=== PATIENT | male | born 1955 | race Caucasian/White ===

== ENCOUNTER 2018-04-03 07:08 | Outpatient (CLI) | payer MEDICARE, BC ==
[~2018-04-03] VITALS: Ht 175.3 cm; Wt 127.0 kg
[~2018-04-03 07:08] MED LIST: ALL300T PO; AMLO10TA3 PO; ASPI-1071 PO; CHOL100062 PO; CHOL4PAC2 PO; FENO160T PO; METF500T4 PO; MULT-1085 PO; PIOG45TA PO; VALS1TAB81 PO
[2018-04-03] MEDS ORDERED: albuterol 2.5 MG/3 ML nebule NEB PRN (08:05)
== END 2018-04-03 23:59 | disposition home or self-care (01) ==
LOC: RT 07:08
PROVIDERS: ATTEND Family Medicine
DX: R94.2 Abnormal results of pulmonary function studies (principal); E11.9 Type 2 diabetes mellitus without complications; I10 Essential (primary) hypertension; Z87.891 Personal history of nicotine dependence; Z72.89 Other problems related to lifestyle
CPT/HCPCS: 94060; 94640; 94727; 94729; 94760

== ENCOUNTER 2018-09-28 17:35 | Emergency (ER) | payer MEDICARE, BC ==
[~2018-09-28] VITALS: Ht 175.3 cm; Wt 113.6 kg
[~2018-09-28 17:35] MED LIST changes: +AMLO-54 PO; -AMLO10TA3 PO; +METF-950 PO; -METF500T4 PO
[2018-09-28] MEDS ORDERED: ciprofloxacin lact 400MG/200ML 200 ML IV STA (19:01)
[2018-09-28] MEDS ORDERED: gentamicin 40 MG/1 ML inj IV ONE (19:05)
[2018-09-28] MEDS ORDERED: NORMAL SALINE IV ONE (19:30)
[2018-09-28] MEDS ORDERED: GENTAMICIN IV ONE (19:30)
[2018-09-28] MEDS ORDERED: morphine 2 MG/ML inj. syringe IV ONE (21:05)
[2018-09-28] MEDS ORDERED: HYDR-4383 PO (21:45)
[2018-09-28 22:22] VITALS: BP 135/81
== END 2018-09-28 22:24 | disposition home or self-care (01) ==
LOC: ER 17:36
DX: S63.287A Dislocation of proximal interphalangeal joint of left little finger, initial encounter (principal); I10 Essential (primary) hypertension; E11.9 Type 2 diabetes mellitus without complications; Z95.5 Presence of coronary angioplasty implant and graft; Z98.890 Other specified postprocedural states; Z88.0 Allergy status to penicillin; Z79.899 Other long term (current) drug therapy; Z79.82 Long term (current) use of aspirin; W19.XXXA Unspecified fall, initial encounter; Y93.89 Activity, other specified; Y92.89 Other specified places as the place of occurrence of the external cause; Y99.8 Other external cause status
CPT/HCPCS: 26770; 73140; 96365; 96368; 96375; 99284; J0744; J1580; J2270; 29130; J7030

== ENCOUNTER 2018-10-18 14:59 | Emergency (ER) | payer MEDICARE, BC ==
[~2018-10-18] VITALS: Ht 175.3 cm; Wt 111.4 kg
[~2018-10-18 14:59] MED LIST changes: +HYDR-4383 PO
[2018-10-18 17:51] VITALS: BP 144/62
== END 2018-10-18 17:52 | disposition home or self-care (01) ==
LOC: ER 14:59
DX: S80.01XA Contusion of right knee, initial encounter (principal); I10 Essential (primary) hypertension; E11.9 Type 2 diabetes mellitus without complications; Z98.61 Coronary angioplasty status; Z98.890 Other specified postprocedural states; Z88.0 Allergy status to penicillin; Z79.82 Long term (current) use of aspirin; Z79.899 Other long term (current) drug therapy; X58.XXXA Exposure to other specified factors, initial encounter; Y93.89 Activity, other specified; Y92.89 Other specified places as the place of occurrence of the external cause; Y99.8 Other external cause status
CPT/HCPCS: 93971; 99283; 99284

== ENCOUNTER 2023-03-26 10:00 | Outpatient (CLI) | payer MEDICARE ==
[~2023-03-26 10:00] MED LIST changes: +AMLO-317 PO; -AMLO-54 PO; -CHOL4PAC2 PO; +CHOL4POW4 PO; +METF-1203 PO; -METF-950 PO
== END 2023-03-26 23:59 | disposition home or self-care (01) ==
LOC: VAS 10:00
PROVIDERS: ATTEND Family Medicine
DX: M79.89 Other specified soft tissue disorders (principal)
CPT/HCPCS: 93971

== ENCOUNTER 2024-12-30 07:14 | Inpatient (IN) | payer MEDICARE, OTHER ==
[~2024-12-30] VITALS: Ht 172.7 cm; Wt 112.2 kg
[2024-12-30] VITALS (24 sets, daily range): BP systolic 82–183; BP diastolic 41–91; PULSE 55–112; RESP 15–23; O2SAT 92–98
[2024-12-30] MEDS: normal saline 1000ML IV soln IVB ONE (07:31)
[2024-12-30 07:33] LABS: BASOPHILS # (AUTO) 0.1 X10'3 (0-0.2); BASOPHILS % (AUTO) 0.8 % (0-1); EOSINOPHILS # (AUTO) 0.3 X10'3 (0-0.9); EOSINOPHILS % (AUTO) 2.2 % (0-6); HEMATOCRIT 40.1 % (42.0-52.0); HEMOGLOBIN 13.2 g/dl (14.0-17.9); LYMPHOCYTES # (AUTO) 2.4 X10'3 (1.1-4.8); LYMPHOCYTES % (AUTO) 20.8 % (21-51); MEAN CORPUSCULAR HEMOGLOBIN 32.2 PG (27.0-31.0); MEAN CORPUSCULAR VOLUME 97.4 FL (78-98); MEAN PLATELET VOLUME 8.2 FL (7.4-10.4); MONOCYTES # (AUTO) 0.9 X10'3 (0-0.9); MONOCYTES % (AUTO) 7.3 % (2-12); NEUTROPHILS % (AUTO) 68.9 % (42-75); PLATELET COUNT 428 X10'3 (140-440); RED BLOOD COUNT 4.12 X10'6 (4.70-6.10); WHITE BLOOD COUNT 11.6 X10'3 (4.5-11.0)
[2024-12-30] MEDS: methylPREDNISolone sod succ 125mg/2ml vial IV ONE (07:33)
[2024-12-30] MEDS: magnesium sulf-water 2g/50mL 50 ML IV ONE (07:38)
[2024-12-30 07:46] LABS: ABG BASE EXCESS -9.2 mmol/L (-2.0-3.0); ABG HCO3 19.1 mmol/L (21.0-28.0); ABG OXYGEN SATURATION 97.3 % (94.0-98.0); ABG PCO2 (T) 50.7 mmHg (35.0-48.0); ABG PH (T) 7.193 (7.350-7.450); ABG PO2 (T) 111.9 mmHg (83.0-108.0); ALLEN'S TEST POSITIVE; FCOHb 0.6 % (0.5-1.5); FHHb 2.7 % (0.0-5.0); FMetHb 0.3 % (0.0-1.5); FO2Hb 96.4 % (94.0-98.0); MODE VENT - APRV; PEEP 5 cm H2O; RESPIRATORY RATE 18 b/min; TIDAL VOLUME 450 mL; TOTAL HEMOGLOBIN 13.5 G/dl (13.5-17.5)
[2024-12-30] MEDS: CefTRIAXone 2gm/D5W 50ml BAG 50 ML IV ONE (07:46)
[2024-12-30] MEDS ORDERED: propofol 1000mg/100ml bottle 100 ML IV PRN (08:00)
[2024-12-30 08:02] LABS: ALBUMIN 3.6 G/DL (3.4-5.0); ANION GAP 10 (8-16); BLOOD UREA NITROGEN 22 MG/DL (7-18); BUN/CREATININE RATIO 14.7 (10.0-20.0); CALCIUM 9.3 MG/DL (8.5-10.1); CHLORIDE 99 MMOL/L (99-107); GLUCOSE 208 MG/DL (70-104); SODIUM 131 MMOL/L (135-145); TOTAL CARBON DIOXIDE 22.1 MMOL/L (24-32); eCRCL 44 ML/MIN; eGFR 46 ML/MIN
[2024-12-30] MEDS: propofol 1000mg/100ml bottle 100 ML IV PRN (08:13)
[2024-12-30] MEDS: nitroGLYCERIN-Tridil 50MG/D5W 250 ML IV PRN (08:17)
[2024-12-30 08:19] LABS: BILIRUBIN,URINE NEGATIVE (Neg); CLARITY,URINE CLEAR (Clear); COLOR,URINE YELLOW (Yellow); GLUCOSE, URINE NEGATIVE (Neg); KETONES,URINE NEGATIVE (Neg); LEUKOCYTE ESTERASE ,URINE NEGATIVE (Neg); NITRITES, URINE NEGATIVE (Neg); OCCULT BLOOD,URINE TRACE-INTACT (Neg); PROTEIN,URINE 100 mg/dl (Neg); UROBILINOGEN,URINE 0.2 E.U/dL (0.2-1.0)
[2024-12-30 08:33] LABS: UA COLLECTION TYPE FOLEY CATH
[2024-12-30 08:38] LABS: BACTERIA,URINE FEW /HPF (Neg); RBC,URINE 0-2 /HPF (0-2); SQUAMOUS EPITHELIAL CELL,UR NONE SEEN /LPF (FEW); WBC,URINE 0-4 /HPF (0-4)
[2024-12-30 08:41] LABS: PRO BRAIN NATRIURETIC PEPTIDE 2222 PG/ML (0-125)
[2024-12-30 08:43] LABS: POTASSIUM 4.8 MMOL/L (3.5-5.1)
[2024-12-30] MEDS: furosemide 10 MG/1 ML 10ml inj IV ONE (08:49)
[2024-12-30] MEDS ORDERED: magnesium hydroxide 30ml (MOM) UD suspension PO PRN (09:55)
[2024-12-30] MEDS ORDERED: acetaminophen 325mg tablet PO PRN ×2 (09:55)
[2024-12-30] MEDS ORDERED: morphine 2 MG/ML inj. syringe IV PRN (09:55)
[2024-12-30] MEDS ORDERED: etomidate 2mg/ml inj. ONE (10:00)
[2024-12-30] MEDS: furosemide 20 MG/2 ML vial IV SCH (10:52)
[2024-12-30] MEDS: morphine 4 MG/ML inj SYRINge IV PRN (11:15)
[2024-12-30] MEDS: FENTANYL-0.9 % NACL/PF 100 ML IV SCH (12:09)
[2024-12-30] MEDS ORDERED: acetaminophen 325mg/10.15ml oral unit dose solution OGT PRN ×2 (13:01)
[2024-12-30] MEDS ORDERED: ipratropium/albuterol 3ml nebule NEB PRN (14:00)
[2024-12-30] MEDS: heparin, porcine 5000 units/ml vial SQ SCH (15:19)
[2024-12-30] MEDS ORDERED: dextrose 50%-water 50ml dispensing syringe IV PRN ×2 (16:15)
[2024-12-30] MEDS ORDERED: DEXTROSE 15 GM of carb/4 tabs (each vial/BOTTLE has 4 tablets) PO PRN ×2 (16:15)
[2024-12-30] MEDS ORDERED: glucagon, human recombinant 1mg kit SUBCUT PRN (16:15)
[2024-12-30 16:30] LABS: OXYGEN SATURATION (MIXED VEN) 76.5 % (60-80); PO2 MIXED VENOUS (TEMP COR) 42.8 mmHg (35-46)
[2024-12-30] MEDS: aspirin 325mg tablet, delayed-release (Ecotrin) PO ONE (17:24)
[2024-12-30] MEDS ORDERED: NIFE90TA70 PO (17:57)
[2024-12-30] MEDS: NORepinephrine 8mg/ 250ml NS 250 ML IV SCH (18:30)
[2024-12-30] MEDS: ipratropium/albuterol 3ml nebule NEB SCH (18:53)
[2024-12-31] VITALS (46 sets, daily range): BP systolic 83–136; BP diastolic 35–65; PULSE 54–66; RESP 0–19; O2SAT 92–98
[2024-12-31 00:34] LABS: BASOPHILS % (AUTO) 0.1 % (0-1); EOSINOPHILS % (AUTO) 0 % (0-6); HEMATOCRIT 28.8 % (42.0-52.0); HEMOGLOBIN 9.7 g/dl (14.0-17.9); LYMPHOCYTES # (AUTO) 0.5 X10'3 (1.1-4.8); LYMPHOCYTES % (AUTO) 5.7 % (21-51); MEAN CORPUSCULAR HEMOGLOBIN 32.3 PG (27.0-31.0); MEAN CORPUSCULAR HGB CONC 33.6 g/dL (33.0-36.5); MEAN CORPUSCULAR VOLUME 96.2 FL (78-98); MEAN PLATELET VOLUME 8.2 FL (7.4-10.4); MONOCYTES # (AUTO) 0.6 X10'3 (0-0.9); MONOCYTES % (AUTO) 7.2 % (2-12); NEUTROPHILS # (AUTO) 7.3 X10'3 (1.8-7.7); PLATELET COUNT 232 X10'3 (140-440); RED BLOOD COUNT 2.99 X10'6 (4.70-6.10); RED CELL DISTRIBUTION WIDTH 15.5 % (11.5-14.5); WHITE BLOOD COUNT 8.4 X10'3 (4.5-11.0)
[2024-12-31 00:53] LABS: ALANINE AMINOTRANSFERASE 17 U/L (12-78); ALBUMIN 2.6 G/DL (3.4-5.0); ALBUMIN/GLOBULIN RATIO 0.8 (1.1-1.5); ALKALINE PHOSPHATASE 36 IU/L (46-116); ANION GAP 8 (8-16); ASPARTATE AMINO TRANSFERASE 45 U/L (10-37); BILIRUBIN,TOTAL 0.4 MG/DL (0.1-1.0); BLOOD UREA NITROGEN 31 MG/DL (7-18); BUN/CREATININE RATIO 16.1 (10.0-20.0); CALCIUM 8.5 MG/DL (8.5-10.1); CHLORIDE 101 MMOL/L (99-107); CREATININE 1.93 MG/DL (0.60-1.10); GLUCOSE 111 MG/DL (70-104); MAGNESIUM 1.9 MG/DL (1.5-2.4); PHOSPHORUS 6.7 MG/DL (2.3-4.5); POTASSIUM 4.7 MMOL/L (3.5-5.1); SODIUM 132 MMOL/L (135-145); TOTAL CARBON DIOXIDE 22.8 MMOL/L (24-32); TOTAL PROTEIN 5.7 G/DL (6.4-8.2); eCRCL 34 ML/MIN; eGFR 34 ML/MIN
[2024-12-31 04:02] LABS: ABG BASE EXCESS -7.8 mmol/L (-2.0-3.0); ABG HCO3 18.3 mmol/L (21.0-28.0); ABG OXYGEN SATURATION 97.1 % (94.0-98.0); ABG PH (T) 7.287 (7.350-7.450); ABG PO2 (T) 100.7 mmHg (83.0-108.0); ALLEN'S TEST POSITIVE; FCOHb 0.1 % (0.5-1.5); FHHb 2.9 % (0.0-5.0); FMetHb 0.3 % (0.0-1.5); FO2Hb 96.7 % (94.0-98.0); MODE VENT - PRVC; PATIENT TEMPERATURE 36.7; PEEP 5 cm H2O; RESPIRATORY RATE 18 b/min; TIDAL VOLUME 500 mL; TOTAL HEMOGLOBIN 10.4 G/dl (13.5-17.5)
[2024-12-31] MEDS: vancomycin/NS 1 GM ADD-VANTAGE 250 ML IV SCH (04:48)
[2024-12-31] MEDS: vancomycin/NS 1 GM ADD-VANTAGE 250 ML IV ONE (04:48)
[2024-12-31] MEDS: pantoprazole 40 MG vial IV SCH (07:51)
[2024-12-31] MEDS: furosemide 10 MG/1 ML 10ml inj IV SCH (07:51)
[2024-12-31] MEDS ORDERED: piperacillin/tazo 3.375gm/50ml 50 ML IV SCH (08:00)
[2024-12-31] MEDS: bumetanide inj. 10 MG in normal saline 100ml IV soln 60 ML IV SCH (15:23)
[2024-12-31] MEDS: HEPARIN DRIP INITAL BOLUS --- DO NOT GIVE/ORDER MC ONE (17:30)
[2024-12-31] MEDS: heparin 25,000 UNIT/250ml bag 250 ML IV PRN (18:36)
[2024-12-31] MEDS: MESSAGE TO NURSING IV ONE (18:38)
[2024-12-31] MEDS: HEPARIN DRIP-CARDIAC**PHARMACIST-TO-DOSE IV ONE (18:38)
[2024-12-31] MEDS: aspirin 81mg, enteric-coated 1 TAB TABLET.DR PO SCH (18:38)
[2024-12-31] MEDS: atorvastatin 20mg tablet PO SCH (20:06)
[2024-12-31 23:39] LABS: BASOPHILS % (AUTO) 0.4 % (0-1); EOSINOPHILS # (AUTO) 0.1 X10'3 (0-0.9); EOSINOPHILS % (AUTO) 1.3 % (0-6); HEMATOCRIT 28.1 % (42.0-52.0); HEMOGLOBIN 9.4 g/dl (14.0-17.9); LYMPHOCYTES # (AUTO) 0.8 X10'3 (1.1-4.8); LYMPHOCYTES % (AUTO) 13.7 % (21-51); MEAN CORPUSCULAR HGB CONC 33.4 g/dL (33.0-36.5); MEAN CORPUSCULAR VOLUME 95.9 FL (78-98); MONOCYTES # (AUTO) 0.6 X10'3 (0-0.9); MONOCYTES % (AUTO) 10.9 % (2-12); NEUTROPHILS # (AUTO) 4.2 X10'3 (1.8-7.7); NEUTROPHILS % (AUTO) 73.7 % (42-75); PLATELET COUNT 239 X10'3 (140-440); RED BLOOD COUNT 2.93 X10'6 (4.70-6.10); RED CELL DISTRIBUTION WIDTH 15.6 % (11.5-14.5); WHITE BLOOD COUNT 5.7 X10'3 (4.5-11.0)
[2024-12-31 23:51] LABS: INR 1.1 INR; PROTHROMBIN TIME 11.4 SECONDS (9.0-12.0)
[2024-12-31 23:54] LABS: ALANINE AMINOTRANSFERASE 26 U/L (12-78); ALBUMIN 2.6 G/DL (3.4-5.0); ALBUMIN/GLOBULIN RATIO 0.9 (1.1-1.5); ALKALINE PHOSPHATASE 32 IU/L (46-116); ANION GAP 7 (8-16); ASPARTATE AMINO TRANSFERASE 29 U/L (10-37); BILIRUBIN,TOTAL 0.3 MG/DL (0.1-1.0); BLOOD UREA NITROGEN 49 MG/DL (7-18); BUN/CREATININE RATIO 21.5 (10.0-20.0); CALCIUM 8.3 MG/DL (8.5-10.1); CHLORIDE 101 MMOL/L (99-107); CREATININE 2.28 MG/DL (0.60-1.10); GLUCOSE 120 MG/DL (70-104); SODIUM 136 MMOL/L (135-145); TOTAL CARBON DIOXIDE 27.7 MMOL/L (24-32); TOTAL PROTEIN 5.6 G/DL (6.4-8.2); eCRCL 29 ML/MIN; eGFR 28 ML/MIN
[2024-12-31 23:58] LABS: CHOL/HDL RATIO 3.9 (0.00-4.99); CHOLESTEROL 118 MG/DL (0-200); HDL CHOLESTEROL 30 MG/DL (35-60); LDL CHOLESTEROL 62 MG/DL (50-100); MAGNESIUM 2.1 MG/DL (1.5-2.4); PHOSPHORUS 6.1 MG/DL (2.3-4.5); TRIGLYCERIDES 178 MG/DL (20-135)
[2025-01-01] VITALS (45 sets, daily range): BP systolic 101–139; BP diastolic 39–58; PULSE 56–76; RESP 14–28; O2SAT 94–99
[2025-01-01] MEDS: heparin 10,000 units/1 ML INJ IV PRN (01:00)
[2025-01-01] MEDS: MESSAGE TO NURSING IV ONE ×3 (01:01→17:25)
[2025-01-01 04:28] LABS: ABG BASE EXCESS -0.8 mmol/L (-2.0-3.0); ABG HCO3 24.4 mmol/L (21.0-28.0); ABG OXYGEN SATURATION 95.3 % (94.0-98.0); ABG PCO2 (T) 43.1 mmHg (35.0-48.0); ABG PH (T) 7.371 (7.350-7.450); ABG PO2 (T) 80.4 mmHg (83.0-108.0); ALLEN'S TEST Modified; FCOHb 0.5 % (0.5-1.5); FHHb 4.7 % (0.0-5.0); FMetHb 0.3 % (0.0-1.5); FO2Hb 94.5 % (94.0-98.0); MODE PRVC; PATIENT TEMPERATURE 37.4; PEEP 5 cm H2O; RESPIRATORY RATE 18 b/min; TIDAL VOLUME 500 mL; TOTAL HEMOGLOBIN 10.4 G/dl (13.5-17.5)
[2025-01-01 05:56] LABS: BASOPHILS % (AUTO) 0.7 % (0-1); EOSINOPHILS # (AUTO) 0.1 X10'3 (0-0.9); EOSINOPHILS % (AUTO) 1.3 % (0-6); HEMATOCRIT 28.7 % (42.0-52.0); HEMOGLOBIN 9.7 g/dl (14.0-17.9); LYMPHOCYTES # (AUTO) 0.8 X10'3 (1.1-4.8); MEAN CORPUSCULAR HEMOGLOBIN 32.2 PG (27.0-31.0); MEAN CORPUSCULAR HGB CONC 33.8 g/dL (33.0-36.5); MEAN CORPUSCULAR VOLUME 95.4 FL (78-98); MEAN PLATELET VOLUME 8.5 FL (7.4-10.4); MONOCYTES # (AUTO) 0.7 X10'3 (0-0.9); MONOCYTES % (AUTO) 12.5 % (2-12); NEUTROPHILS # (AUTO) 3.8 X10'3 (1.8-7.7); NEUTROPHILS % (AUTO) 70.5 % (42-75); PLATELET COUNT 233 X10'3 (140-440); RED BLOOD COUNT 3.01 X10'6 (4.70-6.10); RED CELL DISTRIBUTION WIDTH 15.4 % (11.5-14.5); WHITE BLOOD COUNT 5.4 X10'3 (4.5-11.0)
[2025-01-01 06:28] LABS: ALANINE AMINOTRANSFERASE 21 U/L (12-78); ALBUMIN 2.6 G/DL (3.4-5.0); ALBUMIN/GLOBULIN RATIO 0.8 (1.1-1.5); ALKALINE PHOSPHATASE 33 IU/L (46-116); ANION GAP 9 (8-16); ASPARTATE AMINO TRANSFERASE 35 U/L (10-37); BILIRUBIN,TOTAL 0.3 MG/DL (0.1-1.0); BLOOD UREA NITROGEN 48 MG/DL (7-18); BUN/CREATININE RATIO 19.4 (10.0-20.0); CALCIUM 8.5 MG/DL (8.5-10.1); CHLORIDE 100 MMOL/L (99-107); CREATININE 2.47 MG/DL (0.60-1.10); GLUCOSE 111 MG/DL (70-104); POTASSIUM 3.9 MMOL/L (3.5-5.1); SODIUM 134 MMOL/L (135-145); TOTAL CARBON DIOXIDE 24.9 MMOL/L (24-32); TOTAL PROTEIN 5.7 G/DL (6.4-8.2); eCRCL 27 ML/MIN; eGFR 26 ML/MIN
[2025-01-01 06:31] LABS: PHOSPHORUS 6.1 MG/DL (2.3-4.5); PREALBUMIN 28.1 MG/DL (19-36)
[2025-01-01 10:26] LABS: ALBUMIN 2.6 G/DL (3.4-5.0); ANION GAP 9 (8-16); BLOOD UREA NITROGEN 50 MG/DL (7-18); BUN/CREATININE RATIO 20.2 (10.0-20.0); CALCIUM 8.5 MG/DL (8.5-10.1); CHLORIDE 100 MMOL/L (99-107); CREATININE 2.47 MG/DL (0.60-1.10); GLUCOSE 107 MG/DL (70-104); POTASSIUM 3.9 MMOL/L (3.5-5.1); SODIUM 134 MMOL/L (135-145); TOTAL CARBON DIOXIDE 25.4 MMOL/L (24-32); eCRCL 27 ML/MIN; eGFR 26 ML/MIN
[2025-01-01 16:40] LABS: ALBUMIN 2.7 G/DL (3.4-5.0); ANION GAP 10 (8-16); BLOOD UREA NITROGEN 57 MG/DL (7-18); BUN/CREATININE RATIO 22.7 (10.0-20.0); CALCIUM 8.6 MG/DL (8.5-10.1); CHLORIDE 100 MMOL/L (99-107); CREATININE 2.51 MG/DL (0.60-1.10); GLUCOSE 98 MG/DL (70-104); MAGNESIUM 2.2 MG/DL (1.5-2.4); POTASSIUM 4.1 MMOL/L (3.5-5.1); SODIUM 138 MMOL/L (135-145); TOTAL CARBON DIOXIDE 28.3 MMOL/L (24-32); eCRCL 26 ML/MIN; eGFR 25 ML/MIN
[2025-01-01 23:59] LABS: ALBUMIN 2.6 G/DL (3.4-5.0); ANION GAP 10 (8-16); BLOOD UREA NITROGEN 60 MG/DL (7-18); BUN/CREATININE RATIO 23.3 (10.0-20.0); CALCIUM 8.5 MG/DL (8.5-10.1); CHLORIDE 101 MMOL/L (99-107); CREATININE 2.58 MG/DL (0.60-1.10); GLUCOSE 119 MG/DL (70-104); MAGNESIUM 2.1 MG/DL (1.5-2.4); POTASSIUM 4.1 MMOL/L (3.5-5.1); SODIUM 138 MMOL/L (135-145); TOTAL CARBON DIOXIDE 27.5 MMOL/L (24-32); eCRCL 25 ML/MIN; eGFR 25 ML/MIN
[2025-01-02] VITALS (39 sets, daily range): BP systolic 105–177; BP diastolic 44–75; PULSE 57–115; RESP 11–23; O2SAT 91–98
[2025-01-02] MEDS: MESSAGE TO NURSING IV ONE ×3 (01:21→15:10)
[2025-01-02 03:37] LABS: ABG BASE EXCESS -0.8 mmol/L (-2.0-3.0); ABG HCO3 23.9 mmol/L (21.0-28.0); ABG OXYGEN SATURATION 97.7 % (94.0-98.0); ABG PCO2 (T) 41.3 mmHg (35.0-48.0); ABG PH (T) 7.384 (7.350-7.450); ABG PO2 (T) 105.9 mmHg (83.0-108.0); ALLEN'S TEST Modified; FCOHb 0.4 % (0.5-1.5); FHHb 2.3 % (0.0-5.0); FMetHb 0.3 % (0.0-1.5); MODE prvc; PATIENT TEMPERATURE 37.8; PEEP 5 cm H2O; RESPIRATORY RATE 18 b/min; TIDAL VOLUME 500 mL; TOTAL HEMOGLOBIN 10.7 G/dl (13.5-17.5)
[2025-01-02 06:02] LABS: ALANINE AMINOTRANSFERASE 22 U/L (12-78); ALBUMIN 2.5 G/DL (3.4-5.0); ALBUMIN/GLOBULIN RATIO 0.7 (1.1-1.5); ALKALINE PHOSPHATASE 35 IU/L (46-116); ANION GAP 8 (8-16); ASPARTATE AMINO TRANSFERASE 32 U/L (10-37); BILIRUBIN,TOTAL 0.4 MG/DL (0.1-1.0); BLOOD UREA NITROGEN 62 MG/DL (7-18); BUN/CREATININE RATIO 23.4 (10.0-20.0); CALCIUM 8.7 MG/DL (8.5-10.1); CHLORIDE 99 MMOL/L (99-107); CREATININE 2.65 MG/DL (0.60-1.10); GLUCOSE 121 MG/DL (70-104); PHOSPHORUS 6.1 MG/DL (2.3-4.5); POTASSIUM 3.7 MMOL/L (3.5-5.1); SODIUM 134 MMOL/L (135-145); TOTAL CARBON DIOXIDE 26.9 MMOL/L (24-32); TOTAL PROTEIN 6.1 G/DL (6.4-8.2); eCRCL 25 ML/MIN; eGFR 24 ML/MIN
[2025-01-02 06:03] LABS: BASOPHILS % (AUTO) 0.5 % (0-1); EOSINOPHILS # (AUTO) 0.1 X10'3 (0-0.9); EOSINOPHILS % (AUTO) 1.2 % (0-6); HEMATOCRIT 29.8 % (42.0-52.0); HEMOGLOBIN 10.3 g/dl (14.0-17.9); LYMPHOCYTES # (AUTO) 0.7 X10'3 (1.1-4.8); MEAN CORPUSCULAR HEMOGLOBIN 32.9 PG (27.0-31.0); MEAN CORPUSCULAR HGB CONC 34.4 g/dL (33.0-36.5); MEAN CORPUSCULAR VOLUME 95.5 FL (78-98); MEAN PLATELET VOLUME 8.8 FL (7.4-10.4); MONOCYTES % (AUTO) 15.5 % (2-12); NEUTROPHILS # (AUTO) 4.4 X10'3 (1.8-7.7); NEUTROPHILS % (AUTO) 70.8 % (42-75); PLATELET COUNT 258 X10'3 (140-440); RED BLOOD COUNT 3.12 X10'6 (4.70-6.10); RED CELL DISTRIBUTION WIDTH 15.6 % (11.5-14.5); WHITE BLOOD COUNT 6.2 X10'3 (4.5-11.0)
[2025-01-02] MEDS ORDERED: bisacodyl 10mg suppository rectal RC PRN (07:45)
[2025-01-02] MEDS: docusate sodium 100mg/10ml UD cup PO SCH (08:00)
[2025-01-02] MEDS ORDERED: DEXTROSE 15 GM of carb/4 tabs (each vial/BOTTLE has 4 tablets) OGT PRN ×2 (11:31)
[2025-01-02] MEDS ORDERED: carvedilol 6.25mg tablet PO SCH (13:20)
[2025-01-02] MEDS: carvedilol 6.25mg tablet PO ONE (13:53)
[2025-01-02 14:18] LABS: APTT 40 SECONDS (22-32)
[2025-01-02] MEDS: furosemide 10 MG/1 ML 10ml inj IV SCH (16:51)
[2025-01-02] MEDS: chloestyramine/aspartame 4gm packet PO SCH (19:36)
[2025-01-02] MEDS: ondansetron/PF 4mg/2ml inj IV PRN (19:36)
[2025-01-02] MEDS: docusate sodium 100mg/10ml UD cup OGT SCH (19:36)
[2025-01-02] MEDS: carvedilol 6.25mg tablet PO SCH (19:36)
[2025-01-02] MEDS: fenofibrate 145mg tablet PO SCH (19:36)
[2025-01-02] MEDS: allopurinol 300 MG tablet PO SCH (19:36)
[2025-01-02] MEDS ORDERED: HYDROcodone/acetaminophen 5mg/325mg tablet PO SCH (20:00)
[2025-01-03] VITALS (24 sets, daily range): BP systolic 95–153; BP diastolic 44–64; PULSE 62–81; RESP 12–22; TEMP 97.6–97.9; O2SAT 92–97
[2025-01-03 02:09] LABS: BASOPHILS % (AUTO) 0.5 % (0-1); EOSINOPHILS # (AUTO) 0.1 X10'3 (0-0.9); EOSINOPHILS % (AUTO) 1.7 % (0-6); HEMOGLOBIN 10.5 g/dl (14.0-17.9); LYMPHOCYTES # (AUTO) 0.7 X10'3 (1.1-4.8); LYMPHOCYTES % (AUTO) 9.6 % (21-51); MEAN CORPUSCULAR HEMOGLOBIN 32.2 PG (27.0-31.0); MEAN CORPUSCULAR HGB CONC 33.9 g/dL (33.0-36.5); MEAN PLATELET VOLUME 8.3 FL (7.4-10.4); MONOCYTES # (AUTO) 1.2 X10'3 (0-0.9); MONOCYTES % (AUTO) 16.1 % (2-12); NEUTROPHILS # (AUTO) 5.4 X10'3 (1.8-7.7); NEUTROPHILS % (AUTO) 72.1 % (42-75); PLATELET COUNT 277 X10'3 (140-440); RED BLOOD COUNT 3.26 X10'6 (4.70-6.10); RED CELL DISTRIBUTION WIDTH 15.1 % (11.5-14.5); WHITE BLOOD COUNT 7.5 X10'3 (4.5-11.0)
[2025-01-03 02:23] LABS: ALANINE AMINOTRANSFERASE 25 U/L (12-78); ALBUMIN 2.8 G/DL (3.4-5.0); ALBUMIN/GLOBULIN RATIO 0.7 (1.1-1.5); ALKALINE PHOSPHATASE 41 IU/L (46-116); ANION GAP 8 (8-16); ASPARTATE AMINO TRANSFERASE 26 U/L (10-37); BILIRUBIN,TOTAL 0.8 MG/DL (0.1-1.0); BLOOD UREA NITROGEN 68 MG/DL (7-18); BUN/CREATININE RATIO 29.1 (10.0-20.0); CALCIUM 9.4 MG/DL (8.5-10.1); CHLORIDE 99 MMOL/L (99-107); CREATININE 2.34 MG/DL (0.60-1.10); GLUCOSE 111 MG/DL (70-104); PHOSPHORUS 6.2 MG/DL (2.3-4.5); POTASSIUM 3.8 MMOL/L (3.5-5.1); SODIUM 140 MMOL/L (135-145); TOTAL CARBON DIOXIDE 33.5 MMOL/L (24-32); TOTAL PROTEIN 6.6 G/DL (6.4-8.2); eCRCL 28 ML/MIN; eGFR 28 ML/MIN
[2025-01-03] MEDS: furosemide 10 MG/1 ML 10ml inj IV SCH (08:00)
[2025-01-03] MEDS: aspirin 81mg tab.chew OGT SCH (08:42)
[2025-01-03] MEDS: docusate sod 100mg capsule PO SCH (08:43)
[2025-01-03] MEDS: atorvastatin 20mg tablet OGT SCH (08:44)
[2025-01-03] MEDS: losartan 50mg tablet PO SCH (08:44)
[2025-01-03] MEDS: HYDROchlorothiazide 25mg tablet PO SCH (08:45)
[2025-01-03] MEDS: heparin, porcine 5000 units/ml vial SQ SCH (08:46)
[2025-01-03] MEDS: multivitamins, therapeutics tablet PO SCH (08:53)
[2025-01-03] MEDS: NIFEdipine XL 30mg tablet PO SCH (09:30)
[2025-01-03] MEDS: acetaminophen 325mg tablet PO PRN (13:02)
[2025-01-03 14:33] LABS: D-DIMER 9.92 MG/L FEU (0-0.50)
[2025-01-03 14:38] LABS: CREATINE KINASE 77 U/L (39-308); LIPASE 62 U/L (16-77); THYROID STIMULATING HORMONE 0.99 ulU/ml (0.34-4.50)
[2025-01-03] MEDS: allopurinol 100mg tablet PO SCH (20:18)
[2025-01-04] VITALS (18 sets, daily range): BP systolic 125–168; BP diastolic 52–69; PULSE 67–77; RESP 14–22; TEMP 97.5–98.7; O2SAT 81–96
[2025-01-04 07:08] LABS: BASOPHILS % (AUTO) 0.7 % (0-1); EOSINOPHILS # (AUTO) 0.2 X10'3 (0-0.9); EOSINOPHILS % (AUTO) 3.9 % (0-6); HEMATOCRIT 31.9 % (42.0-52.0); HEMOGLOBIN 10.7 g/dl (14.0-17.9); LYMPHOCYTES # (AUTO) 0.7 X10'3 (1.1-4.8); MEAN CORPUSCULAR HEMOGLOBIN 32.1 PG (27.0-31.0); MEAN CORPUSCULAR HGB CONC 33.6 g/dL (33.0-36.5); MEAN CORPUSCULAR VOLUME 95.6 FL (78-98); MEAN PLATELET VOLUME 8.8 FL (7.4-10.4); MONOCYTES % (AUTO) 17.2 % (2-12); NEUTROPHILS # (AUTO) 3.7 X10'3 (1.8-7.7); NEUTROPHILS % (AUTO) 65.2 % (42-75); PLATELET COUNT 309 X10'3 (140-440); RED BLOOD COUNT 3.34 X10'6 (4.70-6.10); RED CELL DISTRIBUTION WIDTH 14.9 % (11.5-14.5); WHITE BLOOD COUNT 5.7 X10'3 (4.5-11.0)
[2025-01-04 07:29] LABS: ALANINE AMINOTRANSFERASE 21 U/L (12-78); ALBUMIN 2.8 G/DL (3.4-5.0); ALBUMIN/GLOBULIN RATIO 0.7 (1.1-1.5); ALKALINE PHOSPHATASE 40 IU/L (46-116); ANION GAP 10 (8-16); ASPARTATE AMINO TRANSFERASE 30 U/L (10-37); BILIRUBIN,TOTAL 0.6 MG/DL (0.1-1.0); BLOOD UREA NITROGEN 90 MG/DL (7-18); BUN/CREATININE RATIO 30.1 (10.0-20.0); CALCIUM 9.9 MG/DL (8.5-10.1); CHLORIDE 97 MMOL/L (99-107); CREATININE 2.99 MG/DL (0.60-1.10); GLUCOSE 125 MG/DL (70-104); MAGNESIUM 2.2 MG/DL (1.5-2.4); PHOSPHORUS 5.8 MG/DL (2.3-4.5); POTASSIUM 3.7 MMOL/L (3.5-5.1); SODIUM 137 MMOL/L (135-145); TOTAL CARBON DIOXIDE 29.9 MMOL/L (24-32); TOTAL PROTEIN 6.9 G/DL (6.4-8.2); eCRCL 22 ML/MIN; eGFR 21 ML/MIN
[2025-01-04 07:50] LABS: PLATELET ESTIMATE NORMAL; TOTAL CELLS COUNTED 100
[2025-01-04] MEDS: nystatin 15 GM powder TP SCH (09:49)
[2025-01-04] MEDS: pantoprazole 40mg Tablet.DR PO SCH (09:52)
[2025-01-05] VITALS (19 sets, daily range): BP systolic 158–195; BP diastolic 61–87; PULSE 64–88; RESP 14–24; TEMP 97.2–98.9; O2SAT 86–99
[2025-01-05] MEDS: losartan 50mg tablet PO ONE (03:20)
[2025-01-05 07:46] LABS: BASOPHILS # (AUTO) 0.1 X10'3 (0-0.2); BASOPHILS % (AUTO) 0.9 % (0-1); EOSINOPHILS # (AUTO) 0.2 X10'3 (0-0.9); EOSINOPHILS % (AUTO) 3.5 % (0-6); HEMATOCRIT 32.2 % (42.0-52.0); HEMOGLOBIN 10.9 g/dl (14.0-17.9); LYMPHOCYTES # (AUTO) 0.9 X10'3 (1.1-4.8); LYMPHOCYTES % (AUTO) 13.2 % (21-51); MEAN CORPUSCULAR HEMOGLOBIN 32.2 PG (27.0-31.0); MEAN CORPUSCULAR HGB CONC 33.8 g/dL (33.0-36.5); MEAN CORPUSCULAR VOLUME 95.3 FL (78-98); MEAN PLATELET VOLUME 9.3 FL (7.4-10.4); MONOCYTES # (AUTO) 1.1 X10'3 (0-0.9); MONOCYTES % (AUTO) 17.3 % (2-12); NEUTROPHILS # (AUTO) 4.2 X10'3 (1.8-7.7); NEUTROPHILS % (AUTO) 65.1 % (42-75); PLATELET COUNT 358 X10'3 (140-440); RED BLOOD COUNT 3.39 X10'6 (4.70-6.10); RED CELL DISTRIBUTION WIDTH 14.7 % (11.5-14.5); WHITE BLOOD COUNT 6.5 X10'3 (4.5-11.0)
[2025-01-05 08:39] LABS: ALANINE AMINOTRANSFERASE 26 U/L (12-78); ALBUMIN 2.9 G/DL (3.4-5.0); ALBUMIN/GLOBULIN RATIO 0.7 (1.1-1.5); ALKALINE PHOSPHATASE 41 IU/L (46-116); ANION GAP 9 (8-16); ASPARTATE AMINO TRANSFERASE 36 U/L (10-37); BILIRUBIN,TOTAL 0.5 MG/DL (0.1-1.0); BLOOD UREA NITROGEN 87 MG/DL (7-18); BUN/CREATININE RATIO 37.3 (10.0-20.0); CALCIUM 10.3 MG/DL (8.5-10.1); CHLORIDE 100 MMOL/L (99-107); CREATININE 2.33 MG/DL (0.60-1.10); GLUCOSE 122 MG/DL (70-104); MAGNESIUM 2.2 MG/DL (1.5-2.4); PHOSPHORUS 4.6 MG/DL (2.3-4.5); POTASSIUM 3.5 MMOL/L (3.5-5.1); PREALBUMIN 21.1 MG/DL (19-36); SODIUM 137 MMOL/L (135-145); TOTAL CARBON DIOXIDE 28.5 MMOL/L (24-32); TOTAL PROTEIN 7.1 G/DL (6.4-8.2); TRIGLYCERIDES 192 MG/DL (20-135); eCRCL 28 ML/MIN; eGFR 28 ML/MIN
[2025-01-05] MEDS: normal saline 1000ml 1,000 ML IV ONE (11:37)
[2025-01-05] MEDS: hydrALAZINE 25 MG tablet PO SCH (15:49)
[2025-01-05] MEDS: normal saline 1000ml 1,000 ML IV SCH (16:39)
[2025-01-05 20:51] LABS: UREA NITROGEN 24HR,URINE 20.1 GM/24HR (7-20)
[2025-01-06] VITALS (30 sets, daily range): BP systolic 107–216; BP diastolic 61–92; PULSE 70–105; RESP 14–26; TEMP 96.9–98.6; O2SAT 85–96
[2025-01-06] MEDS: magnesium hydroxide 30ml (MOM) UD suspension OGT PRN (03:43)
[2025-01-06 07:11] LABS: BASOPHILS # (AUTO) 0.1 X10'3 (0-0.2); BASOPHILS % (AUTO) 0.9 % (0-1); EOSINOPHILS # (AUTO) 0.3 X10'3 (0-0.9); EOSINOPHILS % (AUTO) 4.3 % (0-6); HEMATOCRIT 31.5 % (42.0-52.0); HEMOGLOBIN 10.7 g/dl (14.0-17.9); LYMPHOCYTES # (AUTO) 0.7 X10'3 (1.1-4.8); LYMPHOCYTES % (AUTO) 11.7 % (21-51); MEAN CORPUSCULAR HEMOGLOBIN 32.6 PG (27.0-31.0); MEAN CORPUSCULAR VOLUME 95.7 FL (78-98); MEAN PLATELET VOLUME 8.7 FL (7.4-10.4); MONOCYTES # (AUTO) 0.9 X10'3 (0-0.9); MONOCYTES % (AUTO) 14.5 % (2-12); NEUTROPHILS # (AUTO) 4.1 X10'3 (1.8-7.7); NEUTROPHILS % (AUTO) 68.6 % (42-75); PLATELET COUNT 358 X10'3 (140-440); RED BLOOD COUNT 3.29 X10'6 (4.70-6.10); RED CELL DISTRIBUTION WIDTH 14.7 % (11.5-14.5); WHITE BLOOD COUNT 5.9 X10'3 (4.5-11.0)
[2025-01-06 07:28] LABS: ALANINE AMINOTRANSFERASE 25 U/L (12-78); ALBUMIN 2.8 G/DL (3.4-5.0); ALBUMIN/GLOBULIN RATIO 0.7 (1.1-1.5); ALKALINE PHOSPHATASE 41 IU/L (46-116); ANION GAP 6 (8-16); ASPARTATE AMINO TRANSFERASE 36 U/L (10-37); BILIRUBIN,TOTAL 0.5 MG/DL (0.1-1.0); BLOOD UREA NITROGEN 68 MG/DL (7-18); BUN/CREATININE RATIO 39.5 (10.0-20.0); CALCIUM 10.4 MG/DL (8.5-10.1); CHLORIDE 105 MMOL/L (99-107); CREATININE 1.72 MG/DL (0.60-1.10); GLUCOSE 149 MG/DL (70-104); PHOSPHORUS 2.9 MG/DL (2.3-4.5); POTASSIUM 3.7 MMOL/L (3.5-5.1); SODIUM 140 MMOL/L (135-145); TOTAL CARBON DIOXIDE 28.9 MMOL/L (24-32); TOTAL PROTEIN 6.7 G/DL (6.4-8.2); eCRCL 38 ML/MIN; eGFR 39 ML/MIN
[2025-01-06] MEDS ORDERED: heparin 1,000unit/ml 10ml vial 10 ML ONE (14:50)
[2025-01-06] MEDS ORDERED: fentaNYL/PF 50MCG/1 ML 2ML syringe ONE (14:50)
[2025-01-06] MEDS ORDERED: LIDOcaine 1% (10mg/ml) 2ml vial ONE (14:50)
[2025-01-06] MEDS ORDERED: verapamil 2.5 mg/ml inj IV ONE (14:50)
[2025-01-06] MEDS ORDERED: midazolam 1 mg/ML 2ml injection ONE (14:50)
[2025-01-06] MEDS ORDERED: iohexol 350MG/ML 100ml bottle IV ONE (14:50)
[2025-01-06] MEDS ORDERED: nitroGLYCERIN 500mcg/5mL D5W 5 ML IV ONE (14:52)
[2025-01-06] MEDS ORDERED: heparin 1,000 UNITS/NS 500ml 500 ML ONE (15:16)
[2025-01-06] MEDS ORDERED: iohexol 350 MG/ML 50ML vial IV ONE (15:40)
[2025-01-06] MEDS ORDERED: acetaminophen 325mg/10.15ml oral unit dose solution PO PRN (15:58)
[2025-01-06] MEDS ORDERED: DEXTROSE 15 GM of carb/4 tabs (each vial/BOTTLE has 4 tablets) PO PRN ×2 (15:59)
[2025-01-06] MEDS ORDERED: magnesium hydroxide 30ml (MOM) UD suspension PO PRN (16:00)
[2025-01-06] MEDS: hydrALAZINE 20mg/ml inj. IV PRN (16:43)
[2025-01-06] MEDS ORDERED: niCARDipine-NS 40mg/200ml IVPB 200 ML IV PRN (19:25)
[2025-01-06] MEDS ORDERED: HYDROcodone/acetaminophen 5mg/325mg tablet PO PRN (20:30)
[2025-01-06] MEDS: niCARDipine-NS 40mg/200ml IVPB 200 ML IV PRN (22:31)
[2025-01-07] VITALS (18 sets, daily range): BP systolic 116–156; BP diastolic 50–97; PULSE 70–102; RESP 16–26; TEMP 96.8–98.1; O2SAT 90–97
[2025-01-07 07:33] LABS: BASOPHILS # (AUTO) 0.1 X10'3 (0-0.2); BASOPHILS % (AUTO) 0.9 % (0-1); EOSINOPHILS # (AUTO) 0.2 X10'3 (0-0.9); EOSINOPHILS % (AUTO) 3.2 % (0-6); HEMATOCRIT 32.8 % (42.0-52.0); HEMOGLOBIN 10.9 g/dl (14.0-17.9); LYMPHOCYTES # (AUTO) 0.7 X10'3 (1.1-4.8); LYMPHOCYTES % (AUTO) 11.4 % (21-51); MEAN CORPUSCULAR HEMOGLOBIN 31.9 PG (27.0-31.0); MEAN CORPUSCULAR HGB CONC 33.2 g/dL (33.0-36.5); MEAN CORPUSCULAR VOLUME 95.9 FL (78-98); MEAN PLATELET VOLUME 8.7 FL (7.4-10.4); MONOCYTES # (AUTO) 0.8 X10'3 (0-0.9); MONOCYTES % (AUTO) 12.3 % (2-12); NEUTROPHILS # (AUTO) 4.6 X10'3 (1.8-7.7); NEUTROPHILS % (AUTO) 72.2 % (42-75); PLATELET COUNT 351 X10'3 (140-440); RED BLOOD COUNT 3.41 X10'6 (4.70-6.10); RED CELL DISTRIBUTION WIDTH 14.8 % (11.5-14.5); WHITE BLOOD COUNT 6.3 X10'3 (4.5-11.0)
[2025-01-07 07:44] LABS: ALANINE AMINOTRANSFERASE 24 U/L (12-78); ALBUMIN 2.7 G/DL (3.4-5.0); ALBUMIN/GLOBULIN RATIO 0.8 (1.1-1.5); ALKALINE PHOSPHATASE 39 IU/L (46-116); ANION GAP 8 (8-16); ASPARTATE AMINO TRANSFERASE 33 U/L (10-37); BILIRUBIN,TOTAL 0.4 MG/DL (0.1-1.0); BLOOD UREA NITROGEN 46 MG/DL (7-18); BUN/CREATININE RATIO 32.4 (10.0-20.0); CHLORIDE 107 MMOL/L (99-107); CREATININE 1.42 MG/DL (0.60-1.10); GLUCOSE 128 MG/DL (70-104); MAGNESIUM 1.9 MG/DL (1.5-2.4); PHOSPHORUS 3.1 MG/DL (2.3-4.5); POTASSIUM 3.6 MMOL/L (3.5-5.1); SODIUM 141 MMOL/L (135-145); TOTAL PROTEIN 6.3 G/DL (6.4-8.2); eCRCL 46 ML/MIN; eGFR 49 ML/MIN
[2025-01-07] MEDS: clopidogrel 75mg tablet PO SCH (07:51)
[2025-01-07] MEDS: aspirin 81mg tab.chew PO SCH (07:52)
[2025-01-07] MEDS: atorvastatin 20mg tablet PO SCH (07:52)
== END 2025-01-07 15:28 | DRG 871 ==
LOC: ER 07:14 → ED HOLD 08:43 → CICU 2S 11:59 → PCU 3S 01-03 12:33
PROVIDERS: ADMIT Internal Medicine Critical Care Medicine; ATTEND Internal Medicine Critical Care Medicine
PROC: 5A1945Z Respiratory Ventilation, 24-96 Consecutive Hours (ICD-10-PCS; principal; 2024-12-30)
PROC: 0BH17EZ Insertion of Endotracheal Airway into Trachea, Via Natural or Artificial Opening (ICD-10-PCS; 2024-12-30)
PROC: 02HV33Z Insertion of Infusion Device into Superior Vena Cava, Percutaneous Approach (ICD-10-PCS; 2024-12-30)
PROC: B548ZZA Ultrasonography of Superior Vena Cava, Guidance (ICD-10-PCS; 2024-12-30)
PROC: 4A023N7 Measurement of Cardiac Sampling and Pressure, Left Heart, Percutaneous Approach (ICD-10-PCS; 2025-01-06)
PROC: B2111ZZ Fluoroscopy of Multiple Coronary Arteries using Low Osmolar Contrast (ICD-10-PCS; 2025-01-06)
PROC: B2151ZZ Fluoroscopy of Left Heart using Low Osmolar Contrast (ICD-10-PCS; 2025-01-06)
DX: A41.9 Sepsis, unspecified organism (principal); I21.4 Non-ST elevation (NSTEMI) myocardial infarction; J18.9 Pneumonia, unspecified organism; J96.01 Acute respiratory failure with hypoxia; I50.23 Acute on chronic systolic (congestive) heart failure; N17.0 Acute kidney failure with tubular necrosis; E87.1 Hypo-osmolality and hyponatremia; J44.1 Chronic obstructive pulmonary disease with (acute) exacerbation; Z20.822 Contact with and (suspected) exposure to COVID-19; E66.01 Morbid (severe) obesity due to excess calories; D64.9 Anemia, unspecified; Z96.653 Presence of artificial knee joint, bilateral; E11.9 Type 2 diabetes mellitus without complications; E88.09 Other disorders of plasma-protein metabolism, not elsewhere classified; E83.39 Other disorders of phosphorus metabolism; G47.30 Sleep apnea, unspecified; I11.0 Hypertensive heart disease with heart failure; Z88.0 Allergy status to penicillin; Z88.8 Allergy status to other drugs, medicaments and biological substances; Z79.82 Long term (current) use of aspirin; Z79.899 Other long term (current) drug therapy; Z79.84 Long term (current) use of oral hypoglycemic drugs; Z68.38 Body mass index [BMI] 38.0-38.9, adult
CPT/HCPCS: 31500; 36415; 36600; 71045; 71250; 74150; 78582; 80048; 80053; 80061; 81001; 82550; 82570; 82803; 82810; 82948; 83036; 83605; 83690; 83735; 83880; 84100; 84133; 84134; 84145; 84300; 84443; 84478; 84484; 84540; 84560; 85007; 85018; 85025; 85379; 85610; 85730; 86885; 86900; 86901; 87040; 87070; 87077; 87081; 87186; 87502; 87503; 87811; 93005; 93306; 93458; 94002; 94003; 94640; 94760; 94799; 97116; 97161; 97530; 97535; 99152; 99285; A4615; A4620; A5200; A6213; A6250; A6258; A6449; A7015; A9539; A9540; C1751; C1758; C1894; G0378; J0360; J0696; J1644; J1940; J2003; J2250; J2270; J2405; J2470; J2704; J2919; J3010; J3370; J3490; J7030; J7040; Q9967

== ENCOUNTER 2025-07-02 09:24 | Outpatient (CLI) | payer MEDICARE, OTHER ==
[~2025-07-02 09:24] MED LIST changes: -AMLO-317 PO; +NIFE90TA70 PO; -PIOG45TA PO
--- NOTE | 2025-07-02 14:59 | RADIOLOGY REPORT ---
Exam: CT CTA CAROTIDS/VERTEBRALS INDICATION: ATHSCL [place] ARTERIES OF EXTRM W INTRMT ANAYELI, BI EXAM DATE: 07/02/2025 09:45 AM COMPARISON: None TECHNIQUE: CTA neck with intravenous contrast. 3D image postprocessing was performed on a dedicated workstation and images were used for interpretation and reporting. CONTRAST: Type of contrast: Omni 350 Contrast injected: 100 ml RADIATION DOSE: Angio: CTDIvol: 30 mGy, DLP: 570 mGy*cm FINDINGS: Limited by motion. CTA neck: The visualized thoracic aortic arch and proximal great vessels demonstrate calcified plaque at the or igin of the left subclavian artery possibly resulting in a stenosis. Calcified plaque in the proxima l left internal carotid artery resulting in a [id number], approximately 50% stenosis. Calcifie d plaque in the proximal right internal carotid artery resulting in a moderate to high-grade, approxi mately 70% stenosis. The cervical segments of the right and left vertebral arteries are within mehdi l limits. The limited visualized lung apices are clear. The surrounding soft tissues and osseous st ructures are otherwise unremarkable. IMPRESSION: 1. Limited by motion. Moderate to high-grade, approximately 70% stenosis of the proximal right inter nal carotid artery. [id number], approximately 50% stenosis of the proximal left internal caroti d artery. Vascular surgery evaluation is recommended. CAROTID STENOSIS REFERENCE Distal internal carotid artery diameter as the denominator for stenosis measurement: MILD = <50% stenosis. MODERATE = 50-69% stenosis. SEVERE = 70-89% stenosis. CRITICAL = 90-99% stenosis. OCCLUDED = 100% stenosis. HS:Y
== END 2025-07-02 23:59 | disposition home or self-care (01) ==
LOC: RAD 09:24
PROVIDERS: ATTEND Internal Medicine Interventional Cardiology
DX: I65.23 Occlusion and stenosis of bilateral carotid arteries (principal); I70.213 Atherosclerosis of native arteries of extremities with intermittent claudication, bilateral legs
CPT/HCPCS: 70498; Q9967